=== PATIENT | female | born 1985 | race African-American/Black ===

== ENCOUNTER 2018-05-20 17:30 | Emergency (ER) | payer SELFPAY ==
[~2018-05-20] VITALS: Ht 157.5 cm; Wt 106.0 kg
[2018-05-20] MEDS ORDERED: ACETAMINOPHEN 325MG TABLET PO ONE (19:00)
[2018-05-20] MEDS ORDERED: BACITRACIN ZINC OINT UDPKT TOP ONE (19:30)
[2018-05-20] MEDS ORDERED: LIDOCAINE HCL/PF 1% 10 MG/ML 5ML VIAL IJ ONE (19:30)
[2018-05-20] MEDS ORDERED: IBUPROFEN 600MG TABLET PO ONE (19:30)
[2018-05-20 19:41] LABS: HEMATOCRIT. 36.3 % (36.0-48.0); HEMOGLOBIN. 12.4 g/dL (12.0-16.0); MEAN CORPUSCULAR HEMOGLOBIN 30.6 pg (28.0-32.0); MEAN CORPUSCULAR VOLUME 89.4 fL (81.0-99.0); MEAN PLATELET VOLUME 7.5 fl (7.4-10.4); PLATELET 305 x1000/uL (130-400); RED BLOOD CELL COUNT 4.06 mill/uL (4.2-5.4); RED CELL DISTRIBUTION WIDTH 13.6 % (11.6-14.6)
[2018-05-20 19:45] LABS: CHLORIDE 103 mEq/L (98-107)
[2018-05-20] MEDS ORDERED: LIDOCAINE HCL 1% 20ML VIAL (Pyxis) INJ INFIL ONE (19:45)
[2018-05-20] MEDS ORDERED: CEFTRIAXONE SODIUM 1 G/VIAL IM ONE (19:45)
[2018-05-20 19:49] LABS: PROTHROMBIN TIME 10.4 sec (9.1-11.1)
[2018-05-20 19:51] LABS: HCG SCREEN NEGATIVE
[2018-05-20 20:00] LABS: PLATELET ESTIMATE NORMAL
[2018-05-20 21:13] LABS: CLARITY URINE CLEAR (CLEAR); COLOR URINE YELLOW (YELLOW); KETONES URINE NEGATIVE (NEGATIVE); LEUKOCYTE ESTERASE URINE TRACE (NEGATIVE); NITRITE URINE NEGATIVE (NEGATIVE); OCCULT BLOOD URINE 2+ (NEGATIVE); PH URINE 5.5 (4.5-8.0); PROTEIN URINE NEGATIVE (NEGATIVE); SPECIFIC GRAVITY URINE 1.005 (1.005-1.030); UROBILINOGEN URINE 0.2 E.U./dL (0.2-1.0)
[2018-05-20] MEDS ORDERED: LIDOCAINE HCL/PF 1% 10 MG/ML 5ML VIAL IJ SCH (22:15)
[2018-05-20 22:27] VITALS: BP 126/82
== END 2018-05-20 22:34 | disposition home or self-care (01) ==
LOC: ER 17:30
DX: F12.90 Cannabis use, unspecified, uncomplicated (principal); L02.412 Cutaneous abscess of left axilla; L02.411 Cutaneous abscess of right axilla; N39.0 Urinary tract infection, site not specified
CPT/HCPCS: 10060; 36415; 71045; 80053; 81003; 83605; 84703; 85025; 85610; 87040; 87086; 93005; 96372; 99285; J0696; J3490

== ENCOUNTER 2018-05-23 00:18 | Emergency (ER) | payer SELFPAY ==
[~2018-05-23] VITALS: Ht 157.5 cm; Wt 103.0 kg
[2018-05-23] MEDS ORDERED: IBUPROFEN 600MG TABLET PO STA (01:52)
[2018-05-23] MEDS ORDERED: ONDANSETRON 4MG ODT PO ONE (02:00)
[2018-05-23 02:23] LABS: HEMATOCRIT. 33.2 % (36.0-48.0); HEMOGLOBIN. 11.7 g/dL (12.0-16.0); MEAN CORPUSCULAR VOLUME 88.1 fL (81.0-99.0); MEAN PLATELET VOLUME 7.4 fl (7.4-10.4); PLATELET 233 x1000/uL (130-400); RED BLOOD CELL COUNT 3.78 mill/uL (4.2-5.4); RED CELL DISTRIBUTION WIDTH 13.5 % (11.6-14.6)
[2018-05-23 02:26] LABS: CHLORIDE 103 mEq/L (98-107)
[2018-05-23] MEDS ORDERED: ACETAMINOPHEN 325MG TABLET PO ONE (02:45)
[2018-05-23 03:20] LABS: ATYPICAL LYMPHOCYTES 1
[2018-05-23 03:21] LABS: PLATELET ESTIMATE NORMAL
[2018-05-23] MEDS ORDERED: IOHEXOL-350 100 ML BOTTLE ONE (05:16)
[2018-05-23 06:00] VITALS: BP 140/88
== END 2018-05-23 06:02 | disposition home or self-care (01) ==
LOC: ER 00:18
DX: J18.9 Pneumonia, unspecified organism (principal); R79.1 Abnormal coagulation profile; F17.210 Nicotine dependence, cigarettes, uncomplicated; F12.90 Cannabis use, unspecified, uncomplicated
CPT/HCPCS: 36415; 71045; 71275; 80048; 81025; 85025; 85379; 93005; 99285; Q0162; Q9967